=== PATIENT | male | born 1995 | race Caucasian/White ===

== ENCOUNTER → 2016-11-10 | Outpatient (CLI) | payer OTHER ==
[~2016-11-10] MED LIST: COLACE-DPS100 MG PO; HYDROCODONE 5MG/5 MG PO; TYLENOL DPS325 MG PO
== END | disposition home or self-care (01) ==
LOC: RAD.S 15:40
DX: S06.9X9A Unspecified intracranial injury with loss of consciousness of unspecified duration, initial encounter (principal); I62.9 Nontraumatic intracranial hemorrhage, unspecified; I60.9 Nontraumatic subarachnoid hemorrhage, unspecified; W19.XXXA Unspecified fall, initial encounter

== ENCOUNTER 2016-12-01 16:29 | Emergency (ER) | payer OTHER ==
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
== END 2016-12-01 20:10 | disposition home or self-care (01) ==
LOC: ER 16:29
DX: S00.211A Abrasion of right eyelid and periocular area, initial encounter (principal); F17.210 Nicotine dependence, cigarettes, uncomplicated; Z88.1 Allergy status to other antibiotic agents; V47.5XXA Car driver injured in collision with fixed or stationary object in traffic accident, initial encounter